=== PATIENT | male | born 1950 | race African-American/Black ===

== ENCOUNTER 2022-10-29 20:00 | Emergency (ER) | payer OTHER ==
[~2022-10-29] VITALS: Ht 175.3 cm; Wt 94.5 kg
[2022-10-29 21:24] VITALS: BP 133/82
== END 2022-10-30 00:06 | disposition left against medical advice (07) ==
LOC: ER 20:00
DX: M54.9 Dorsalgia, unspecified (principal); Z53.21 Procedure and treatment not carried out due to patient leaving prior to being seen by health care provider

== ENCOUNTER 2022-11-02 20:09 | Emergency (ER) | payer OTHER ==
[~2022-11-02] VITALS: Ht 185.4 cm; Wt 99.2 kg
[2022-11-03] MEDS ORDERED: DOXY-286 PO (06:42)
[2022-11-03] MEDS ORDERED: FURO1TAB31 PO (06:42)
[2022-11-03] MEDS ORDERED: POTA-180 PO (06:44)
[2022-11-03 08:04] VITALS: BP 127/97
== END 2022-11-03 08:05 | disposition home or self-care (01) ==
LOC: ER 20:09
DX: L03.115 Cellulitis of right lower limb (principal); R60.0 Localized edema; I11.0 Hypertensive heart disease with heart failure; I50.9 Heart failure, unspecified
CPT/HCPCS: 71045

== ENCOUNTER 2022-11-04 20:20 | Emergency (ER) | payer OTHER ==
[~2022-11-04] VITALS: Ht 175.3 cm; Wt 97.6 kg
[~2022-11-04 20:20] MED LIST: DOXY-286 PO; FURO1TAB31 PO; POTA-180 PO
[2022-11-04 21:10] VITALS: BP 140/95
[2022-11-04] MEDS ORDERED: AZITHROMYCIN 250 MG TAB PO ONE (23:15)
== END 2022-11-04 23:22 | disposition home or self-care (01) ==
LOC: ER 20:20
DX: J18.9 Pneumonia, unspecified organism (principal); R07.89 Other chest pain
CPT/HCPCS: 71045

== ENCOUNTER 2022-11-12 22:04 | Emergency (ER) | payer OTHER ==
[~2022-11-12] VITALS: Ht 175.3 cm; Wt 100.0 kg
[2022-11-12 22:12] VITALS: BP 124/81
== END 2022-11-13 04:59 | disposition left against medical advice (07) ==
LOC: EDBD 22:04 → ER 22:04
DX: H61.23 Impacted cerumen, bilateral (principal); R60.0 Localized edema
CPT/HCPCS: 69209

== ENCOUNTER 2022-11-21 18:55 | Emergency (ER) | payer OTHER ==
[~2022-11-21] VITALS: Ht 175.3 cm; Wt 77.0 kg
[2022-11-22] MEDS ORDERED: NAP500T PO (01:59)
[2022-11-22 02:32] VITALS: BP 128/67
== END 2022-11-22 07:02 | disposition home or self-care (01) ==
LOC: ER 18:55 → EDBD 18:55 → ER 11-22 02:32
DX: S39.012A Strain of muscle, fascia and tendon of lower back, initial encounter (principal); S29.012A Strain of muscle and tendon of back wall of thorax, initial encounter; Z59.00 Homelessness unspecified; W22.8XXA Striking against or struck by other objects, initial encounter; Y93.89 Activity, other specified; Y92.89 Other specified places as the place of occurrence of the external cause; Y99.8 Other external cause status

== ENCOUNTER 2022-11-30 20:04 | Emergency (ER) | payer OTHER ==
[~2022-11-30] VITALS: Ht 175.3 cm; Wt 95.2 kg
[~2022-11-30 20:04] MED LIST changes: +NAP500T PO
[2022-11-30] MEDS ORDERED: DOCUSATE SOD 100 MG CAP PO ONE (22:00)
[2022-11-30] MEDS ORDERED: COR10OTS OT (23:32)
[2022-11-30 23:47] VITALS: BP 125/69
== END 2022-11-30 23:51 | disposition home or self-care (01) ==
LOC: ER 20:04
DX: H61.21 Impacted cerumen, right ear (principal); H60.91 Unspecified otitis externa, right ear; Z59.00 Homelessness unspecified

== ENCOUNTER 2023-02-04 21:39 | Emergency (ER) | payer MEDICARE, OTHER ==
[~2023-02-04] VITALS: Ht 177.8 cm; Wt 84.5 kg
[~2023-02-04 21:39] MED LIST changes: +COR10OTS OT
[2023-02-04 23:10] LABS: Basophils # (auto) 0 10 ^3/uL (0-0.2); Basophils % (auto) 0.6 % (0.0-2.0); Eosinophils # (auto) 0.2 10 ^3/uL (0-0.8); Eosinophils % (auto) 3.4 % (0.0-7.0); Hematocrit 36.7 % (41.0-53.0); Hemoglobin 12.4 g/dL (13.5-17.5); Lymphocytes # (auto) 1.1 10 ^3/uL (0.4-5.4); Lymphocytes % (auto) 22.8 % (10.0-50.0); Mean Corpuscular Hemoglobin 33.5 pg (28.0-32.0); Mean Corpuscular Hgb Conc. 33.8 g/dL (32.0-36.0); Mean Corpuscular Volume 99.2 fL (80.0-100.0); Monocytes # (auto) 0.4 10 ^3/uL (0-1.3); Monocytes % (auto) 8.4 % (0.0-12.0); Neutrophils # (auto) 3.1 10 ^3/uL (1.6-8.6); Neutrophils % (auto) 64.8 % (37.0-80.0); Nucleated Red Blood Cells % 0.2 %; Red Cell Distribution Width 15.5 % (11.8-14.3); White Blood Cell 4.8 10^3/uL (4.4-10.8)
[2023-02-04 23:36] LABS: Albumin 3.1 g/dL (3.4-5.0); Calcium 8.7 mg/dL (8.5-10.1); Potassium 3.9 mmol/L (3.5-5.1)
[2023-02-04 23:39] LABS: Bilirubin, Total 0.5 mg/dL (0.2-1.0); Total Protein 6.8 g/dL (6.4-8.2)
[2023-02-05 06:09] VITALS: BP 131/62
== END 2023-02-04 23:59 | disposition left against medical advice (07) ==
LOC: ER 21:39
DX: M79.671 Pain in right foot (principal); Z53.21 Procedure and treatment not carried out due to patient leaving prior to being seen by health care provider
CPT/HCPCS: 36415; 80053; 85025

== ENCOUNTER 2023-02-28 16:13 | Emergency (ER) | payer OTHER ==
[~2023-02-28] VITALS: Ht 175.3 cm; Wt 83.3 kg
[2023-02-28] MEDS ORDERED: NAP500T PO (21:21)
[2023-02-28 21:28] VITALS: BP 101/79; PULSE 76; RESP 18; TEMP 98; O2SAT 98
== END 2023-02-28 22:04 | disposition home or self-care (01) ==
LOC: ER 16:13
DX: G89.29 Other chronic pain (principal); M79.671 Pain in right foot; M19.071 Primary osteoarthritis, right ankle and foot; Z59.00 Homelessness unspecified; Z79.2 Long term (current) use of antibiotics; Z79.899 Other long term (current) drug therapy
CPT/HCPCS: 73630